=== PATIENT | female | born 1950 | race Hispanic/Latino ===

== ENCOUNTER 2018-11-13 08:16 | Outpatient (CLI) | payer OTHER ==
--- NOTE | 2018-11-13 09:52 | RAD ---
THREE VIEWS OF THE RIGHT SHOULDER: Date: 11-13-18 Comparison: None. History: Right shoulder pain. FINDINGS: There is osteophyte formation at the acromion distally. There is mild degenerative change of the acro mioclavicular joint. There is no widening of the AC or CC interspace and there is no displaced fractu re or evidence of dislocation seen. IMPRESSION: Degenerative joint disease. No acute osseous abnormality. POS: [facility]
== END 2018-11-13 08:17 | disposition home or self-care (01) ==
LOC: NAV RAD 08:16
PROVIDERS: ATTEND Nurse Practitioner Adult Health
DX: M19.90 Unspecified osteoarthritis, unspecified site (principal)

== ENCOUNTER 2023-02-25 20:49 | Emergency (ER) | payer MEDICARE, OTHER ==
[2023-02-25] MEDS ORDERED: traMADol HCl 50 MG TAB ONE (22:17)
== END 2023-02-25 23:06 | disposition home or self-care (01) ==
LOC: NAV ERS 20:49
DX: S22.31XA Fracture of one rib, right side, initial encounter for closed fracture (principal); S29.011A Strain of muscle and tendon of front wall of thorax, initial encounter; S00.33XA Contusion of nose, initial encounter; I10 Essential (primary) hypertension; E11.9 Type 2 diabetes mellitus without complications; E78.00 Pure hypercholesterolemia, unspecified; W10.8XXA Fall (on) (from) other stairs and steps, initial encounter; Y93.01 Activity, walking, marching and hiking; Z79.4 Long term (current) use of insulin
CPT/HCPCS: 70486; 72125

== ENCOUNTER 2023-02-28 11:53 | Emergency (ER) | payer MEDICARE ==
[2023-02-28] MEDS ORDERED: traMADol HCl 50 MG TAB ONE (12:31)
[2023-02-28] MEDS ORDERED: Benzonatate 100 MG CAP ONE (12:31)
== END 2023-02-28 13:05 | disposition home or self-care (01) ==
LOC: NAV ERS 11:53
DX: S22.31XA Fracture of one rib, right side, initial encounter for closed fracture (principal); S20.211A Contusion of right front wall of thorax, initial encounter; I10 Essential (primary) hypertension; E11.9 Type 2 diabetes mellitus without complications; E78.00 Pure hypercholesterolemia, unspecified; X58.XXXA Exposure to other specified factors, initial encounter; Z79.4 Long term (current) use of insulin
CPT/HCPCS: 99283